=== PATIENT | female | born 1975 | race Caucasian/White ===

== ENCOUNTER 2016-08-31 12:01 | Day surgery (SDC) | payer OTHER ==
[~2016-08-31 12:01] MED LIST: BUPIVACAINE/EPI 0.25% 30 ML SDV ONE; LIDOCAINE 1% 30 ML SDV ONE
[2016-08-31] MEDS ORDERED: LR 1,000 ML IV ONE (12:30)
[2016-08-31] MEDS ORDERED: ACETAMINOPHEN 500 MG TAB PO ONE (13:00)
[2016-08-31] MEDS ORDERED: PREGABALIN 150 MG CAP PO ONE (13:00)
[2016-08-31] MEDS ORDERED: ceFAZolin 2 GM/DEXTROSE 100 ML IV ONE (13:00)
[2016-08-31] MEDS ORDERED: SCOPOLAMINE HYDROBROMIDE 1.5 MG PATCH TD ONE (13:00)
[2016-08-31] MEDS ORDERED: fentaNYL 100 MCG/2 ML INJ ONE ×3 (13:24→16:37)
[2016-08-31] MEDS ORDERED: PROPOFOL 200 MG/20 ML VIAL ONE (13:26)
[2016-08-31] MEDS ORDERED: MIDAZOLAM 2 MG/2 ML VIAL ONE (13:37)
[2016-08-31] MEDS ORDERED: OXYCODONE/APAP 5/325 TAB ONE ×2 (17:12→17:15)
== END 2016-08-31 18:56 | disposition home or self-care (01) ==
LOC: FSGY 12:01
PROVIDERS: ATTEND Orthopaedic Surgery Sports Medicine
DX: T84.84XA Pain due to internal orthopedic prosthetic devices, implants and grafts, initial encounter (principal); M25.851 Other specified joint disorders, right hip; M76.11 Psoas tendinitis, right hip
CPT/HCPCS: C1713; J0690; J2250; J2704; J3010

== ENCOUNTER 2018-03-18 10:17 | Day surgery (SDC) | payer OTHER ==
--- NOTE | 2018-03-17 21:47 | PDGENHP ---
History and Physical - Chief Complaint RIGHT HIP PAIN - History of Present Illness 1. Ishaan Hip Dyplasia, R more symptomatic than L 2. ~~Ishaan cam type JOAQUIN 3. ~~Ishaan. Femoral Retroversion, Clinical Impression 4. History of MALLORY, hip scope HISTORY OF PRESENT ILLNESS: Kylieis a 42 y.o.~very ~active female, with history of avid participation in gymnastics and soccer, who I have had the pleasure to consult on today. I have enjoyed meeting her. She~lives in [place]. 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 ~She~is partnered; she~has no children. ~Kyleienjoys snowboarding, hiking, backpacking, soccer, and gym workouts. Natalie's Right hip pain, started in January 2013, with little~previous complaints and with no~recalled trauma or injury. ~Kyliedoes not have~a known history of hip dysplasia. Presentation today is of anterior right hip pain . ~~She also notes occaissional numbness within her Right Glut and Thigh. ~The hip does~wake her~ at night and does not~click and catch on her. Sitting does not present a problem for her, but she does c/o discomfort when standing after long periods of sitting. Kyliedoes~report suffering from lower back pain episodes. Kyliehas not~participated in physical therapy and has~tried other conservative measures including hip injections to her Right GT bursa . She~has not~received sufficient symptomatic improvement. Kyliehas~utilized medication for pain management, including NSAID. Kyliehas used medication for intermittently. Kylieunderstands that she~has a hip and pelvis problem which should be researched and wishes to get a better understanding of her~hip status, followed by an establishment of a treatment strategy, hoping sheNakitawould be able to get back to her~well being active life. History: Past medical history: ~ None which is relevant Relevant familial history: Maternal Grandparents Diabetic, Parents HBP Past surgical history: No. Surgery Anesthesia Year Outcome 1 C-Spine x 2- C5-6, C6-7 general 2013 fair Kyliedescribes problematic issues with general anesthesia which includes nausea. ~The nausea may have been caused by Dilaudid prescription given post C- Spine procedure. I have reviewed, verified and agree with the past medical, surgical, family and social history. Current Medications:~currently has no medications in their medication list. ALLERGIES:~has no allergies on file. Objective: Physical Examination: Kylieis 5 feet 3 inches tall and weighs 150 Lbs. Kylieis AAO x3; she~is well -nourished, in NAD. Skin is warm and dry. ~Breathing is non-labored. ~CV with RRR by pulse. Abdomen is soft, NTND. ~Currently, she~walks with a abnormal slightly antalgic.~gait. She~has left~1 cm short leg length discrepancy and presents with mild~signs of joint laxity. ~Beighton Score of 5. ~She~is fit looking. ~~ Trendelenburg sign is negative and proprioception is normal, both~sides. Lower spine examination is negative for sciatic or femoral nerve irritation with negative SLR &~femoral stretch tests. Range of motion of the spine is normal~for flexion, extension, and rotations, with no associated pain. SIJs examination is normal with abnormal Left Sided~JUAN PABLO in relation and local tenderness. Strength, Sensation and pulses are normal. Right Sided decreased sensation due to Drop Foot/Peroneal Nerve Palsy history. Ankles and knees exams are normal~and no~mal-alignment is evident. Hip ROM (degrees): ER At 90~hip FL IR At 90~hip FL IR Neutral hip ER Neutral hip AB AD FL EX R 50 2 w/pain 30 30 40 5 110 w/pain 15 L 50 5 33 30 45 5 100 5 Specific hip and pelvis tests: Quadrant JUAN PABLO Roll Add. Longus R +++ +++ Negative Negative L +++ +++ Negative Negative Glut. Med ITB Pos. Imp R Negative Negative Negative L Negative Negative Negative Squeeze test measured strong Bony Symphysis pubis is pain free to touch while concentric activity of the rectus abdominis, does not~produce pain at its insertion. Ilio Psos specific tests are positive for pain during cycling for the right hip~ and unremarkable for snap. Right Sided IP pain with resisted hip flexion. Greater trochanteric burse is painful on Right, and Left to palpation . Piriformis tests: FAIR is negative, with no local signs of neuritis related to sciatic nerve. Thigh circumference is symmetric with no evidence for muscle atrophy on both~ sides. Hamstrings tests are negative~functional contraction and negative~tendinopathy On a daily basis, the following percentages reflect Natalie's overall total pain: Deep hip: 60% GT 40% Imaging: Radiology studies which I have personally reviewed, analyzed and measured are below: XR: AP of the hip and pelvis: Performed in a good technique Coccyx to pubic symphysis distance 2.4 cm. Specific measurements show: NSA~ Lat. Cam LCE Lat. Pincer C.Over~sign Sharp's angle A.I~% Head~Coverage % Sourcil~ Angle ATDmm R N - -1 44 38 66 19 N L N - -3 40 38 70 15 N [place] Lines are preserved. Marked Pathological signs are seen in the Symphysis Pubis. Marked Pathological signs are seen at the Ischial tuberosity. ~~~~~~~~~~~~~ Pos. wall sign Sup. Lat. OA Joint Space-WBZ Joint Space-Medial NAD R Negative Negative 6.2 mm 6.8 8.5 L Negative Negative 5.6 mm 8.0 2 mm Sclerosis ~~Dysplasia Cysts ISS Comments R Negative +++ Negative Negative L Negative ++ Negative Negative X Table lateral: Anterior cam lesion is seen Impression and plan: Kylieis a 42 y.o.~active female~suffering from symptomatic bilateral hip pain , RIGHT due to proud Right AIIS causing significant disability to her~and altering her~sport and life activities. Physical examination, imaging, and her~story correspond with the diagnosis mentioned above. I have explained the diagnosis and its significance to Kylieand we have discussed the various possible treatment options and their implications with her. These include a hip arthroscopy followed by MALLORY (periacetabular osteotomy) aiming to address the above pathology and a DFO (derotational femoral osteotomy ) if CT supports the retroversion seen clinically. We had a lengthy discussion about surgical options, including how arthroscopy will correct the labral tear that is causing Kyliesignificant pain due to the nature of this highly innervated structure. However, the dysplasia is only correctable with MALLORY procedure. We explained how this surgery is an open procedure, and though patients tend to do well in the long-term, it involves significant pain in the first 2-4 weeks post-op and a rather lengthy rehab. Kylieunderstands that restrictions after the MALLORY open procedure include 6 weeks off from her~job, (unless she~can workers compensation defense attorney and pain level is managed ) and cessation of driving for 4 weeks. Kylieunderstands that she~will be weight-bearing post-operatively. We discussed the surgical option in depth and explained that we will need a CT to be more conclusive about our findings. Surgical intervention to repair the torn labrum will offer symptomatic relief for an indeterminate amount of time. However, to fix the pathology associated with hip dysplasia, a MALLORY to correct the alignment of the hip socket may be warranted. ~A third surgical procedure may include a DFO will address the Femoral Retrotorsion, and assist in establishing improved hip joint and femoral congruency to allow for ideal range of motion and articulation. Kylieunderstand that hip arthroscopy, MALLORY, and DFO are three separate procedures that are best performed one week apart (scope+DFO and then MALLORY), with the arthroscopy commencing first to "tighten up" any pathology evident in the hip joint (labral repair, etc.) and the MALLORY open procedure occurring 7-10 days later to realign the acetabulum. Kyliewill review the info presented. Prior to surgery, we will obtain an MRI with contrast in order to quantitatively assess the status of the cartilage. CT with 3D recon will be done in order to evaluate femoral torsion and to pre plan an accurate and optimal volume and location of bony resection. Kylieis happy with this plan. I have also supplied her~with handouts, outlining the expected surgical treatment and rehab involved. I wish Kylieall the best, ~~ Alvina Ponce ATC~ Timothy Deshpande MD History Information - Allergies/Home Medication List Allergies/Adverse Reactions: No Known Allergies Allergy (Verified 01/10/18 10:50) Home Medications: Aviane-28 Tablet 01/10/18 [Last Taken Unknown] I have personally reviewed and updated: medical history - Social History Smoking Status: Former smoker Review of Systems Review of Systems: Physical Exam Physical Exam:
[~2018-03-18 10:17] MED LIST changes: -BUPIVACAINE/EPI 0.25% 30 ML SDV ONE; +DIAZEPAM 2 MG TAB PO SCH; -LIDOCAINE 1% 30 ML SDV ONE
[2018-03-18] MEDS ORDERED: BUPIVACAINE/EPI 0.25% 30 ML SDV ONE (10:36)
[2018-03-18] MEDS ORDERED: PREGABALIN 150 MG CAP PO ONE (11:12)
[2018-03-18] MEDS ORDERED: ACETAMINOPHEN 500 MG TAB PO ONE (11:12)
[2018-03-18] MEDS ORDERED: ceFAZolin 2 GM/DEXTROSE 100 ML IV ONE (11:12)
[2018-03-18] MEDS ORDERED: LR 1,000 ML IV ONE (11:14)
--- NOTE | 2018-03-18 15:53 | PDANEPAE ---
ANE History of Present Illness right hip pain ANE Past Medical History - Cardiovascular History Hx Hypertension: No Hx Arrhythmias: No Hx Chest Pain: No Hx Coronary Artery / Peripheral Vascular Disease: No Hx CHF / Valvular Disease: No Hx Palpitations: No - Pulmonary History Hx COPD: No Hx Asthma/Reactive Airway Disease: No Hx Recent Upper Respiratory Infection: No Hx Oxygen in Use at Home: No Hx Sleep Apnea: No Sleep Apnea Screening Result - Last Documented: Negative - Neurologic History Hx Cerebrovascular Accident: No Hx Seizures: No Hx Dementia: No Neurologic History Comment: hx of neck surgery 2012. occasional numbness in right thigh since 2017 surgery - Endocrine History Hx Diabetes: No Hypothyroid: No Hyperthyroid: No Obesity: no - Renal History Hx Renal Disorders: No - Liver History Hx Hepatic Disorders: No - Neurological & Psychiatric Hx Hx Neurological and Psychiatric Disorders: No - Cancer History Hx Cancer: No - Congenital Disorder History Hx Congenital Disorders: No - GI History GERD: no Hx Gastrointestinal Disorders: No - Other Health History Other Health History: none - Chronic Pain History Chronic Pain: No - Surgical History Prior Surgeries: 08/26 - screw removal on left, ASI on right. 12/30/15 Left MALLORY with Nena-Mook. 12/23/15 left hip scope with Nena-Mook. 05/2015 right hip scope. 05/2015 right MALLORY- both with [facility]ena[facility] at [place]. 2012 neck surgery ANE Review of Systems Review of systems is: negative Review of Systems: - Exercise capacity METS (RN): 5 METS ANE Patient History - Allergies Allergies/Adverse Reactions: No Known Allergies Allergy (Verified 01/10/18 10:50) - Home Medications Home medications: home medication list seen and reviewed Home Medications: Aviane-28 Tablet 01/10/18 [Last Taken 03/17/18] - NPO status NPO Status: no food or drink >8 hours NPO Since - Liquids (Date): 03/18/18 NPO Since - Liquids (Time): 08:15 NPO Since - Solids (Date): 03/17/18 NPO Since - Solids (Time): 19:00 - Anes Hx Anes Hx: post operative nausea - Smoking Hx Smoking Status: Former smoker Marijuana use: No - Alcohol Use Alcohol Use: Rarely - Family Anes Hx Family Anes Hx: none Family Hx Anesthesia Complications: none ANE Labs/Vital Signs - Vital Signs Blood Pressure: 125/81 Heart Rate: 65 Respiratory Rate: 18 O2 Sat (%): 99 Height: 160.02 cm Weight: 68.039 kg ANE Physical Exam - Airway Neck exam: FROM Mallampati Score: Class 2 Mouth exam: normal dental/mouth exam - Pulmonary Pulmonary: no respiratory distress, clear to auscultation - Cardiovascular Cardiovascular: regular rate and rhythym, no murmur, rub, or gallop - ASA Status ASA Status: I ANE Anesthesia Plan Anesthesia Plan: general endotracheal anesthesia
[2018-03-18] MEDS ORDERED: PROPOFOL 200 MG/20 ML VIAL ONE ×2 (16:01→18:14)
[2018-03-18] MEDS ORDERED: fentaNYL 250 MCG/5 ML INJ ONE (16:01)
[2018-03-18] MEDS ORDERED: MIDAZOLAM 2 MG/2 ML VIAL IVP ONE (17:44)
[2018-03-18] MEDS ORDERED: CEFAZOLIN 2 GM/DEXTROSE/100 ML BAG IV ONE (18:03)
[2018-03-18] MEDS ORDERED: LIDOCAINE 2% 100 MG/5 ML SYR ONE (18:13)
[2018-03-18] MEDS ORDERED: DEXAMETHASONE 4 MG/ML VIAL ONE (18:13)
[2018-03-18] MEDS ORDERED: ONDANSETRON 4 MG/2 ML VIAL ONE ×2 (18:13→21:44)
[2018-03-18] MEDS ORDERED: fentaNYL 100 MCG/2 ML INJ ONE ×2 (18:14→21:10)
[2018-03-18] MEDS ORDERED: ONDANSETRON 4 MG/2 ML VIAL IVP PRN (19:43)
[2018-03-18] MEDS ORDERED: HYDROCODONE/APAP 5/325 TAB PO PRN (19:43)
[2018-03-18] MEDS ORDERED: NALOXONE HCL 0.4 MG/ML INJ IVP PRN (19:43)
[2018-03-18] MEDS ORDERED: oxyCODONE IR 5 MG TAB PO PRN (19:43)
[2018-03-18] MEDS ORDERED: MEPERIDINE 25 MG/0.5 ML AMP IVP PRN (19:43)
[2018-03-18] MEDS ORDERED: HYDROmorphONE/DILAUDID 2 MG/ML INJ IVP PRN (19:43)
[2018-03-18] MEDS ORDERED: fentaNYL 100 MCG/2 ML INJ IVP PRN (19:43)
[2018-03-18] MEDS ORDERED: ACETAMINOPHEN 500 MG TAB PO PRN (19:43)
[2018-03-18] MEDS ORDERED: PROMETHAZINE HCL 25 MG/ML INJ IVP PRN (19:43)
[2018-03-18] MEDS ORDERED: DEXAMETHASONE 4 MG/ML VIAL IVP PRN (19:43)
--- NOTE | 2018-03-18 19:44 | POSTANESTH ---
Post Anesthetic Evaluation Cardiovascular Status: Normal, Stable, Similar to Pre-Op Cond Respiratory Status: Normal, Stable, Similar to Pre-op Cond. Level of Consciousness/Mental Status: Can Participate in Eval, Mildly Sleepy, Arousable Pain Control: Adequate, Prn Tx Ordered Nausea/Vomiting Control: Adequate, Prn Tx Ordered Complications Possibly Related to Anesthesia: None Noted
[2018-03-18] MEDS ORDERED: KETOROLAC 30 MG/1 ML SDV ONE (20:13)
[2018-03-18] MEDS ORDERED: HYDROCODONE/APAP 5/325 TAB ONE (20:57)
[2018-03-18 21:53] VITALS: BP 138/82
== END 2018-03-18 22:11 | disposition home or self-care (01) ==
LOC: FSGY 10:17
PROVIDERS: ATTEND Orthopaedic Surgery Sports Medicine
PROC: 01NB0ZZ Release Lumbar Nerve, Open Approach (ICD-10-PCS; principal; 2018-03-18 11:45)
DX: G57.11 Meralgia paresthetica, right lower limb (principal); L90.5 Scar conditions and fibrosis of skin; M25.551 Pain in right hip; Z87.891 Personal history of nicotine dependence
CPT/HCPCS: J0690; J1100; J1885; J2001; J2250; J2405; J2704; J3010